=== PATIENT | male | born 1960 | race African-American/Black ===

== ENCOUNTER 2019-01-04 15:25 | Inpatient (IN) | payer OTHER ==
[2019-01-04 17:58] VITALS: BMI 27.3
--- NOTE | 2019-01-04 20:19 | HP ---
COWS - Scale Resting Pulse: 1= [place] 81-100 Sweatin= Chills/Flushing Restless Observation: 0= Sits Still Pupil Size: 0= Normal to Room Light Bone or Joint Aches: 1= Mild Discomfort Runny Nose/ Eye Tearin= Runny Nose/Eyes GI Upset > 30mins: 0= None Tremor Observation: 0= None Yawning Observation: 0= None Anxiety or Irritability: 1=Feels Anxious/Irritable Goose Flesh Skin: 0=Smooth Skin COWS Score: 6 CIWA Score - Admission Criteria [facility]ASAS Guidelines: Admission for Medically Managed Detox: Requires at least one of the followin. CIWA greater than 12 2. Seizures within the past 24 hours 3. Delirium tremens within the past 24 hours 4. Hallucinations within the past 24 hours 5. Acute intervention needed for co occurring medical disorder 6. Acute intervention needed for co occurring psychiatric disorder 7. Severe withdrawal that cannot be handled at a lower level of care (continued vomiting, continued diarrhea, abnormal vital signs) requiring intravenous medication and/or fluids 8. Admission ROS [facility] Chief Complaint: C/O WORSENING WITHDRAWAL SX'S. SEEKING DETOX Allergies/Adverse Reactions: Allergies Allergy/AdvReac Type Severity Reaction Status Date / Time No Known Allergies Allergy Verified 01/04/19 20:15 History of Present Illness: 58 Y.O MALE WITH HX/O OPIOID DEPENDENCE HERE FOR DETOX. CLIENT WAS REFERRED BY HIS OUTPATIENT PROGRAM [facility]. THIS IS HIS FIRST INPATIENT TXMENT HERE. LAST DETOX "MANY YEARS AGO". PRESENTS WITH C/O WORSENING WITHDRAWAL SX'S. CIWA 6. REPORTS LONGEST CLEAN TIME 5 YEARS WHILE INCARCERATED. PMHX- HLD, HTN, BORDERLINE DM. DENIES MENTAL HEALTH HX. DENIES PAST PRESENT SI/HI/ AVH, SEIZURE D/O. Exam Limitations: No Limitations - Ebola screening Have you traveled outside of the country in the last 21 days: No Have you had contact with anyone from an Ebola affected area: No Have you been sick,other than usual withdrawal symptoms: No - Review of Systems Constitutional: Chills, Loss of Appetite, Malaise, Night Sweats, Changes in sleep EENT: reports: Dental Problems (DENTURES BOTH) Respiratory: reports: Other (HX/O TB-TX'ED) Cardiac: reports: No Symptoms Reported GI: reports: Poor Appetite : reports: No Symptoms Reported Musculoskeletal: reports: No Symptoms Reported Integumentary: reports: No Symptoms Reported Neuro: reports: No Symptoms reported Endocrine: reports: Other (PRE DM) Hematology: reports: No Symptoms Reported Psychiatric: reports: Orientated x3 Other Systems: Reviewed and Negative Patient History - Patient Medical History Hx Anemia: No Hx Asthma: No Hx Chronic Obstructive Pulmonary Disease (COPD): No Hx Cancer: No Hx Cardiac Disorders: No Hx Congestive Heart Failure: No Hx Hypertension: Yes Hx Hypercholesterolemia: Yes Hx Pacemaker: No HX Cerebrovascular Accident: No Hx Seizures: No Hx Dementia: No Hx Diabetes: Yes (BORDELINE) Hx Gastrointestinal Disorders: No Hx Liver Disease: No Hx Genitourinary Disorders: No Hx Sexually Transmitted Disorders: No Hx Renal Disease (ESRD): No Hx Thyroid Disease: No Hx Human Immunodeficiency Virus (HIV): No Hx Hepatitis C: No Hx Depression: No Hx Suicide Attempt: No Hx Bipolar Disorder: No Hx Schizophrenia: No Other Medical History: DENIES - Patient Surgical History Past Surgical History: Yes Hx Appendectomy: Yes Anesthesia Reaction: No - PPD History Previous Implant?: Yes Documented Results: Positive w/o proof Implanted On Prior [facility] Admission?: No PPD to be Administered?: No - Smoking Cessation Smoking history: Never smoked Have you smoked in the past 12 months: Yes Aproximately how many cigarettes per day: 10 Cigars Per Day: 0 Hx Chewing Tobacco Use: No Initiated information on smoking cessation: Yes 'Breaking Loose' booklet given: 01/04/19 - Substance & Tx. History Hx Alcohol Use: No Hx Substance Use: Yes Substance Use Type: Heroin Hx Substance Use Treatment: No ([facility]) - Substances Abused [facility] Route: Inhalation Frequency: Daily Amount used: 10 BAGS Age of first use: 19 Date of Last Use: 01/04/19 (EARLY IN THE MORNING) Family Disease History - Family Disease History Family Disease History: Diabetes: Father (), Heart Disease: Father, Other: Father, Sister (ECZEMA) Admission Physical Exam [facility] - Vital Signs Vital Signs: Vital Signs - 24 hr 01/04/19 17:56 Temperature 98.1 F Pulse Rate 90 Respiratory 18 Rate Blood Pressure 147/103 H - Physical General Appearance: Yes: Appropriately Dressed, Anxious HEENTM: Yes: EOMI, Normocephalic, Normal Voice, MAGY, Pharynx Normal, Other ( DENTURES) Respiratory: Yes: Chest Non-Tender, Lungs Clear, Normal Breath Sounds, No Respiratory Distress, No Accessory Muscle Use Neck: Yes: No masses,lesions,Nodules, Supple, Trachea in good position Breast: Yes: Breast Exam Deferred Cardiology: Yes: Regular Rhythm, Regular Rate, S1, S2 Abdominal: Yes: Normal Bowel Sounds, Non Tender, Soft Genitourinary: Yes: Within Normal Limits Back: Yes: Normal Inspection Musculoskeletal: Yes: full range of Motion, Gait Steady Extremities: Yes: Normal Capillary Refill, Normal Range of Motion, Non-Tender Neurological: Yes: milling planer operator II-XII NML intact, Fully Oriented, Alert, Motor Strength 5/5 Integumentary: Yes: Dry, Warm, Rash (ECZEMA TO OTH ELBOWS) Lymphatic: Yes: Within Normal Limits - Diagnostic (1) Opioid dependence with withdrawal Current Visit: Yes Status: Acute (2) HTN (hypertension) Current Visit: Yes Status: Chronic Qualifiers: Hypertension type: essential hypertension Qualified Code(s): I10 - Essential (primary) hypertension (3) Borderline type 2 diabetes mellitus Current Visit: Yes Status: Chronic (4) HLD (hyperlipidemia) Current Visit: Yes Status: Chronic Qualifiers: Hyperlipidemia type: unspecified Qualified Code(s): E78.5 - Hyperlipidemia , unspecified (5) Nicotine dependence Current Visit: Yes Status: Chronic Qualifiers: Nicotine product type: cigarettes Substance use status: uncomplicated Qualified Code(s): F17.210 - Nicotine dependence, cigarettes, uncomplicated (6) History of TB (tuberculosis) Current Visit: Yes Status: Chronic Cleared for Admission [facility] - Detox or Rehab [facility] Level of Care: Medically Managed Detox Regimen/Protocol: Methadone Claeared for Rehab Admission: No [facility] Breath Alcohol Content Breath Alcohol Content: 0 Urine Drug Screen - Results Drug Screen Negative: No Urine Drug Screen Results: FEN-Fentanyl Inpatient Rehab Admission - Rehab Decision to Admit Inpatient rehab admission?: No
[2019-01-04] MEDS ORDERED: MAGNESIUM CITRATE 300 ML BOTTLE PO PRN (20:23)
[2019-01-04] MEDS ORDERED: NICOTINE POLACRILEX 2 MG GUM BC PRN (20:23)
[2019-01-04] MEDS ORDERED: ACETAMINOPHEN 325 MG TABLET (FP) PO PRN (20:23)
[2019-01-04] MEDS ORDERED: MAGNESIUM HYDROX 2400MG/30ML ORAL SUSPENSION 30 ML CUP PO PRN (20:23)
[2019-01-04] MEDS ORDERED: LOPERAMIDE HCL 2 MG CAPSULE PO PRN (20:23)
[2019-01-04] MEDS ORDERED: guaiFENesin/D-METHORPHAN HB 10 ML UNIT-DOSE CUPS PO PRN (20:23)
[2019-01-04] MEDS ORDERED: MENTHOL/PHENOL 1 EACH UD MM PRN (20:23)
[2019-01-04] MEDS ORDERED: MAG HYDROX/AL HYDROX/SIMETH 30 ML UNIT-DOSE CUP PO PRN (20:23)
[2019-01-04] MEDS: THIAMINE HCL 100 MG TABLET (FP) PO SCH (23:50)
[2019-01-05] MEDS ORDERED: METHADONE HCL 10 MG TABLET (FOR DETOX USE ONLY) PO ONE ×3 (00:11→23:00)
[2019-01-05] MEDS: IBUPROFEN 400 MG TABLET (FP) PO PRN ×2 (01:05→19:05)
[2019-01-05] MEDS: diazePAM 5 MG TABLET PO PRN ×4 (01:05→23:10)
[2019-01-05] MEDS: PRENATAL VITAMINS W/ FOLIC ACID TABLET (FP) PO SCH (10:25)
[2019-01-05] MEDS: NICOTINE 21 MG/24 HOURS TOPICAL PATCH TD SCH (10:29)
[2019-01-05 10:49] LABS: HEMATOCRIT 37.9 % (35.4-49); HEMOGLOBIN 12.7 GM/dL (11.7-16.9); MCH 26.9 pg (25.7-33.7); MCHC 33.4 g/dl (32.0-35.9); MEAN CELL VOLUME 80.6 fl (80-96); MEAN PLT VOLUME 8.6 fl (7.5-11.1); PLATELET COUNT 192 K/MM3 (134-434); RBC 4.71 M/mm3 (4.00-5.60); RDW 16.3 % (11.9-15.9); WHITE BLOOD COUNT 5.8 K/mm3 (4.0-10.0)
[2019-01-05 11:02] LABS: ALBUMIN 3.6 g/dl (3.4-5.0); ALK PHOS 81 U/L (45-117); ANION GAP 5 MMOL/L (8-16); BILIRUBIN,TOTAL 0.5 mg/dL (0.2-1); BLOOD UREA NITROGEN 19 mg/dL (7-18); CALCIUM 9.1 mg/dL (8.5-10.1); CHLORIDE 106 mmol/L (98-107); CO2 31 mmol/L (21-32); GLUCOSE,RANDOM 88 mg/dL (74-106); POTASSIUM 4.2 mmol/L (3.5-5.1); SGOT/AST 12 U/L (15-37); SGPT/ALT 19 U/L (13-61); SODIUM 142 mmol/L (136-145); TOT PROT 6.8 g/dl (6.4-8.2)
--- NOTE | 2019-01-05 11:22 | PN ---
[facility] COWS - Scale Resting Pulse: 1= [place] 81-100 Sweatin= No chills or Flushing Restless Observation: 0= Sits Still Pupil Size: 0= Normal to Room Light Bone or Joint Aches: 0= None Runny Nose/ Eye Tearin= None GI Upset > 30mins: 0= None Tremor Observation of Outstretched Hands: 0= None Yawning Observation: 0= None Anxiety or Irritability: 0= None Goose Flesh Skin: 0=Smooth Skin COWS Score: 1 [facility] Progress Note (SOAP) Subjective: pt states doing well with detox protocol. States has DM but is well controlled. O URINE DRUG SCREEN RESULTS Drug Screen Negative No Drug Screen Negative No Urine Drug Screen Results FEN-Fentanyl Urine Drug Screen Results FEN-Fentanyl Vital Signs - 24 hr 01/04/19 01/05/19 01/05/19 17:56 00:10 03:30 Temperature 98.1 F 97.9 F Pulse Rate 90 74 Respiratory 18 18 18 Rate Blood Pressure 147/103 H 156/108 H 01/05/19 01/05/19 06:06 09:06 Temperature 98.6 F 98.1 F Pulse Rate 67 73 Respiratory 18 18 Rate Blood Pressure 160/93 146/96 Laboratory Tests 01/04/19 01/05/19 01/05/19 23:01 08:00 08:00 WBC 5.8 RBC 4.71 Hgb 12.7 Hct 37.9 MCV 80.6 MCH 26.9 MCHC 33.4 RDW 16.3 H Plt Count 192 MPV 8.6 Sodium 142 Potassium 4.2 Chloride 106 Carbon Dioxide 31 Anion Gap 5 L BUN 19 H Creatinine 1.0 Creat Clearance w eGFR > 60 POC Glucometer 94 Random Glucose 88 Calcium 9.1 Total Bilirubin 0.5 AST 12 L ALT 19 Alkaline Phosphatase 81 Total Protein 6.8 Albumin 3.6 a/p: continue heroin detox protocol- pt doing well will add BID f/s monitoring for DM
[2019-01-05] MEDS: metFORMIN HCL 500 MG TABLET (FP) PO SCH (19:05)
[2019-01-05] MEDS ORDERED: LISINOPRIL 20 MG TABLET (FP) PO ONE (19:43)
[2019-01-05] MEDS: ATORVASTATIN CA 40 MG TABLET (FP) PO SCH (22:13)
[2019-01-05] MEDS: THIAMINE HCL 100 MG TABLET (FP) PO SCH (22:14)
--- NOTE | 2019-01-06 02:37 | EKG ---
Test Reason : Blood Pressure : / mmHG Vent. Rate : 074 BPM Atrial Rate : 074 BPM P-R Int : 000 ms QRS Dur : 160 ms QT Int : 378 ms P-R-T Axes : 063 070 047 degrees QTc Int : 419 ms NORMAL SINUS RHYTHM NON-SPECIFIC INTRA-VENTRICULAR CONDUCTION BLOCK ABNORMAL ECG NO PREVIOUS ECGS AVAILABLE Confirmed by DOLORES BELLAMY MD ([id number]) on 01/06/2019 2:37:02 AM Referred By: Confirmed By:DOLORES BELLAMY MD
[2019-01-06] MEDS: metFORMIN HCL 500 MG TABLET (FP) PO SCH ×2 (07:59→17:29)
[2019-01-06] MEDS ORDERED: METHADONE HCL 10 MG TABLET (FOR DETOX USE ONLY) PO ONE (10:00)
[2019-01-06] MEDS ORDERED: LISINOPRIL 10 MG TABLET (FP) PO SCH (10:00)
[2019-01-06] MEDS: ASPIRIN 81 MG CHEWABLE TABLETS PO SCH (10:26)
[2019-01-06] MEDS: PRENATAL VITAMINS W/ FOLIC ACID TABLET (FP) PO SCH (10:26)
[2019-01-06] MEDS: diazePAM 5 MG TABLET PO PRN (10:27)
[2019-01-06] MEDS: NICOTINE 21 MG/24 HOURS TOPICAL PATCH TD SCH (10:27)
[2019-01-06] MEDS: P-EPHED 60MG/TRIPROLIDI 2.5MG TABLET PO PRN (10:32)
--- NOTE | 2019-01-06 14:14 | PN ---
[facility] COWS - Scale Resting Pulse: 0= [place] 80 or Below Sweatin= Chills/Flushing Restless Observation: 1= Difficult to Sit Still Pupil Size: 0= Normal to Room Light Bone or Joint Aches: 2= Severe Diffuse Aches Runny Nose/ Eye Tearin= None GI Upset > 30mins: 0= None Tremor Observation of Outstretched Hands: 0= None Yawning Observation: 1= 1-2x During Session Anxiety or Irritability: 2=Irritable/Anxious Goose Flesh Skin: 3=Piloerection COWS Score: 10 [facility] Progress Note (SOAP) Subjective: Interrupted Sleep, H/A, Body Aches. Objective: PATIENT A & O X 3, OBSERVED AMBULATING ON UNIT. IN NO ACUTE DISTRESS. PATIENT DENIES CHEST PAIN. 01/06/19 14:15 Vital Signs Temperature 98.4 F 01/06/19 09:14 Pulse Rate 79 01/06/19 09:14 Respiratory Rate 18 01/06/19 09:14 Blood Pressure 158/96 01/06/19 09:14 O2 Sat by Pulse Oximetry (%) Laboratory Tests 01/04/19 01/05/19 01/05/19 23:01 08:00 08:00 WBC 5.8 RBC 4.71 Hgb 12.7 Hct 37.9 MCV 80.6 MCH 26.9 MCHC 33.4 RDW 16.3 H Plt Count 192 MPV 8.6 Sodium 142 Potassium 4.2 Chloride 106 Carbon Dioxide 31 Anion Gap 5 L BUN 19 H Creatinine 1.0 Creat Clearance w eGFR > 60 POC Glucometer 94 Random Glucose 88 Calcium 9.1 Total Bilirubin 0.5 AST 12 L ALT 19 Alkaline Phosphatase 81 Total Protein 6.8 Albumin 3.6 RPR Titer 01/05/19 01/06/19 08:00 06:17 WBC RBC Hgb Hct MCV MCH MCHC RDW Plt Count MPV Sodium Potassium Chloride Carbon Dioxide Anion Gap BUN Creatinine Creat Clearance w eGFR POC Glucometer 119 Random Glucose Calcium Total Bilirubin AST ALT Alkaline Phosphatase Total Protein Albumin RPR Titer Nonreactive LABS NOTED. UA RESULTS PENDING. 01/06/19 14:16 Assessment: 01/06/19 14:16 WITHDRAWAL SYMPTOMS. HYPERTENSION. 01/06/19 14:18 Plan: CONTINUE DETOX. INCREASE DAILY DOSE OF LISINOPRIL TO 20 MG PO DAILY FOR ELEVATED BP DESPITE TREATMENT.
[2019-01-06] MEDS ORDERED: LISINOPRIL 10 MG TABLET (FP) PO ONE (15:15)
[2019-01-06 17:01] LABS: URINE APPEARANCE CLOUDY; URINE BILIRUBIN NEGATIVE (<2.0 mg/dL); URINE COLOR YELLOW; URINE GLUCOSE (UA) NEGATIVE (NEGATIVE); URINE KETONE NEGATIVE (NEGATIVE); URINE LEUK ESTERASE NEGATIVE (NEGATIVE); URINE NITRITE NEGATIVE (NEGATIVE); URINE PROTEIN NEGATIVE (NEGATIVE); URINE UROBILINOGEN NEGATIVE mg/dL (0.2-1.0)
[2019-01-06] MEDS: THIAMINE HCL 100 MG TABLET (FP) PO SCH (22:19)
[2019-01-06] MEDS: ATORVASTATIN CA 40 MG TABLET (FP) PO SCH (22:19)
[2019-01-06] MEDS: MELATONIN 5 MG TABLETS PO PRN (22:20)
[2019-01-07] MEDS: metFORMIN HCL 500 MG TABLET (FP) PO SCH ×2 (06:15→17:21)
[2019-01-07] MEDS ORDERED: METHADONE HCL 5 MG TABLET (FOR DETOX USE ONLY) PO ONE (10:00)
[2019-01-07] MEDS: PRENATAL VITAMINS W/ FOLIC ACID TABLET (FP) PO SCH (10:14)
[2019-01-07] MEDS: ASPIRIN 81 MG CHEWABLE TABLETS PO SCH (10:14)
[2019-01-07] MEDS: LISINOPRIL 20 MG TABLET (FP) PO SCH (10:14)
[2019-01-07] MEDS: NICOTINE 21 MG/24 HOURS TOPICAL PATCH TD SCH (11:05)
[2019-01-07] MEDS: P-EPHED 60MG/TRIPROLIDI 2.5MG TABLET PO PRN (11:09)
--- NOTE | 2019-01-07 12:12 | PN ---
[facility] Progress Note (SOAP) Subjective: sweats shakes agitation nasal drip itchy feet i want a lesser dose of methadone so I can leave on thursday Objective: 01/07/19 12:10 Vital Signs Temperature 98.4 F 01/07/19 08:47 Pulse Rate 84 01/07/19 08:47 Respiratory Rate 18 01/07/19 08:47 Blood Pressure 139/97 01/07/19 08:47 O2 Sat by Pulse Oximetry (%) Laboratory Tests 01/04/19 01/05/19 01/05/19 23:01 08:00 08:00 WBC 5.8 RBC 4.71 Hgb 12.7 Hct 37.9 MCV 80.6 MCH 26.9 MCHC 33.4 RDW 16.3 H Plt Count 192 MPV 8.6 Sodium 142 Potassium 4.2 Chloride 106 Carbon Dioxide 31 Anion Gap 5 L BUN 19 H Creatinine 1.0 Creat Clearance w eGFR > 60 POC Glucometer 94 Random Glucose 88 Calcium 9.1 Total Bilirubin 0.5 AST 12 L ALT 19 Alkaline Phosphatase 81 Total Protein 6.8 Albumin 3.6 Urine Color Urine Appearance Urine pH Ur Specific [place] Urine Protein Urine Glucose (UA) Urine Ketones Urine Blood Urine Nitrite Urine Bilirubin Urine Urobilinogen Ur Leukocyte Esterase RPR Titer 01/05/19 01/06/19 01/06/19 08:00 06:17 11:15 WBC RBC Hgb Hct MCV MCH MCHC RDW Plt Count MPV Sodium Potassium Chloride Carbon Dioxide Anion Gap BUN Creatinine Creat Clearance w eGFR POC Glucometer 119 Random Glucose Calcium Total Bilirubin AST ALT Alkaline Phosphatase Total Protein Albumin Urine Color Yellow Urine Appearance Cloudy Urine pH 7.0 Ur Specific [place] 1.015 Urine Protein Negative Urine Glucose (UA) Negative Urine Ketones Negative Urine Blood Negative Urine Nitrite Negative Urine Bilirubin Negative Urine Urobilinogen Negative Ur Leukocyte Esterase Negative RPR Titer Nonreactive 01/06/19 01/07/19 16:24 05:20 WBC RBC Hgb Hct MCV MCH MCHC RDW Plt Count MPV Sodium Potassium Chloride Carbon Dioxide Anion Gap BUN Creatinine Creat Clearance w eGFR POC Glucometer 160 86 Random Glucose Calcium Total Bilirubin AST ALT Alkaline Phosphatase Total Protein Albumin Urine Color Urine Appearance Urine pH Ur Specific [place] Urine Protein Urine Glucose (UA) Urine Ketones Urine Blood Urine Nitrite Urine Bilirubin Urine Urobilinogen Ur Leukocyte Esterase RPR Titer aaox3 ambulating no acute distress Assessment: 01/07/19 12:11 withdrawal sx Plan: continue detox with lesser dose of methadone as pt requested increase fluids actifed tinactin cream
[2019-01-07] MEDS: TOLNAFTATE 1% CREAM 15 GM TUBE TP SCH ×2 (15:01→22:27)
[2019-01-07] MEDS: diazePAM 5 MG TABLET PO PRN (22:26)
[2019-01-07] MEDS: THIAMINE HCL 100 MG TABLET (FP) PO SCH (22:26)
[2019-01-07] MEDS: ATORVASTATIN CA 40 MG TABLET (FP) PO SCH (22:26)
[2019-01-08] MEDS: metFORMIN HCL 500 MG TABLET (FP) PO SCH ×2 (07:46→17:48)
[2019-01-08] MEDS ORDERED: METHADONE HCL 5 MG TABLET (FOR DETOX USE ONLY) PO ONE (10:00)
[2019-01-08] MEDS: PRENATAL VITAMINS W/ FOLIC ACID TABLET (FP) PO SCH (10:22)
[2019-01-08] MEDS: LISINOPRIL 20 MG TABLET (FP) PO SCH (10:22)
[2019-01-08] MEDS: ASPIRIN 81 MG CHEWABLE TABLETS PO SCH (10:22)
[2019-01-08] MEDS: NICOTINE 21 MG/24 HOURS TOPICAL PATCH TD SCH (10:23)
[2019-01-08] MEDS: TOLNAFTATE 1% CREAM 15 GM TUBE TP SCH ×2 (10:30→22:35)
--- NOTE | 2019-01-08 11:55 | PN ---
S Progress Note (SOAP) Subjective: PT REPORTS DECREASED WITHDRAWAL SX-ANXIETY, TREMORS, IRRITABILITY. PT STATES HE IS LEAVING IN THE MORNING AND HAS OWN MEDS AND PCP AT [facility] IN [place], [place]. Objective: 01/08/19 11:52 Vital Signs 01/08/19 01/08/19 06:00 09:56 Temperature 97.3 F L 98.6 F Pulse Rate 72 81 Respiratory 18 18 Rate Blood Pressure 152/86 137/84 Laboratory Tests 01/04/19 01/05/19 01/05/19 23:01 08:00 08:00 WBC 5.8 RBC 4.71 Hgb 12.7 Hct 37.9 MCV 80.6 MCH 26.9 MCHC 33.4 RDW 16.3 H Plt Count 192 MPV 8.6 Sodium 142 Potassium 4.2 Chloride 106 Carbon Dioxide 31 Anion Gap 5 L BUN 19 H Creatinine 1.0 Creat Clearance w eGFR > 60 POC Glucometer 94 Random Glucose 88 Calcium 9.1 Total Bilirubin 0.5 AST 12 L ALT 19 Alkaline Phosphatase 81 Total Protein 6.8 Albumin 3.6 Urine Color Urine Appearance Urine pH Ur Specific [place] Urine Protein Urine Glucose (UA) Urine Ketones Urine Blood Urine Nitrite Urine Bilirubin Urine Urobilinogen Ur Leukocyte Esterase RPR Titer 01/05/19 01/06/19 01/06/19 08:00 06:17 11:15 WBC RBC Hgb Hct MCV MCH MCHC RDW Plt Count MPV Sodium Potassium Chloride Carbon Dioxide Anion Gap BUN Creatinine Creat Clearance w eGFR POC Glucometer 119 Random Glucose Calcium Total Bilirubin AST ALT Alkaline Phosphatase Total Protein Albumin Urine Color Yellow Urine Appearance Cloudy Urine pH 7.0 Ur Specific [place] 1.015 Urine Protein Negative Urine Glucose (UA) Negative Urine Ketones Negative Urine Blood Negative Urine Nitrite Negative Urine Bilirubin Negative Urine Urobilinogen Negative Ur Leukocyte Esterase Negative RPR Titer Nonreactive 01/06/19 01/07/19 01/07/19 16:24 05:20 16:17 WBC RBC Hgb Hct MCV MCH MCHC RDW Plt Count MPV Sodium Potassium Chloride Carbon Dioxide Anion Gap BUN Creatinine Creat Clearance w eGFR POC Glucometer 160 86 128 Random Glucose Calcium Total Bilirubin AST ALT Alkaline Phosphatase Total Protein Albumin Urine Color Urine Appearance Urine pH Ur Specific [place] Urine Protein Urine Glucose (UA) Urine Ketones Urine Blood Urine Nitrite Urine Bilirubin Urine Urobilinogen Ur Leukocyte Esterase RPR Titer 01/08/19 05:45 WBC RBC Hgb Hct MCV MCH MCHC RDW Plt Count MPV Sodium Potassium Chloride Carbon Dioxide Anion Gap BUN Creatinine Creat Clearance w eGFR POC Glucometer 102 Random Glucose Calcium Total Bilirubin AST ALT Alkaline Phosphatase Total Protein Albumin Urine Color Urine Appearance Urine pH Ur Specific [place] Urine Protein Urine Glucose (UA) Urine Ketones Urine Blood Urine Nitrite Urine Bilirubin Urine Urobilinogen Ur Leukocyte Esterase RPR Titer Assessment: 01/08/19 11:52 DECREASED WITHDRAWAL SX Plan: CONTINUE DETOX WILL FOLLOW UP WITH PCP UPON DISCHARGE.
[2019-01-08] MEDS: THIAMINE HCL 100 MG TABLET (FP) PO SCH (22:35)
[2019-01-08] MEDS: ATORVASTATIN CA 40 MG TABLET (FP) PO SCH (22:35)
[2019-01-08] MEDS: MELATONIN 5 MG TABLETS PO PRN (22:35)
[2019-01-09] MEDS ORDERED: METHADONE HCL 10 MG TABLET (FOR DETOX USE ONLY) PO ONE ×2 (06:00→10:00)
[2019-01-09 06:16] VITALS: BP 152/93; PULSE 70; TEMP 97.3
[2019-01-09] MEDS: metFORMIN HCL 500 MG TABLET (FP) PO SCH (06:29)
--- NOTE | 2019-01-09 12:05 | DS ---
[facility] Detox Discharge Summary Admission Date: 01/04/19 Discharge Date: 01/09/19 - History Present History: Opioid Dependence Additional Comments: Patient completed detox successfully. Patient is A/A/Ox3, in nad, ambulatory. Instructed to follow up with his PCP within 1-2 weeks. Pertinent Past History: Prediabetes PPD Positive HTN HLD Opioid dependence Nicotine dependence - Physical Exam Results Vital Signs: Vital Signs Temperature 97.3 F L 01/09/19 06:00 Pulse Rate 70 01/09/19 06:00 Respiratory Rate 18 01/09/19 06:00 Blood Pressure 152/93 01/09/19 06:00 O2 Sat by Pulse Oximetry (%) Pertinent Admission Physical Exam Findings: Withdrawal symptoms Laboratory Tests 01/04/19 01/05/19 01/05/19 23:01 08:00 08:00 WBC 5.8 RBC 4.71 Hgb 12.7 Hct 37.9 MCV 80.6 MCH 26.9 MCHC 33.4 RDW 16.3 H Plt Count 192 MPV 8.6 Sodium 142 Potassium 4.2 Chloride 106 Carbon Dioxide 31 Anion Gap 5 L BUN 19 H Creatinine 1.0 Creat Clearance w eGFR > 60 POC Glucometer 94 Random Glucose 88 Calcium 9.1 Total Bilirubin 0.5 AST 12 L ALT 19 Alkaline Phosphatase 81 Total Protein 6.8 Albumin 3.6 Urine Color Urine Appearance Urine pH Ur Specific [place] Urine Protein Urine Glucose (UA) Urine Ketones Urine Blood Urine Nitrite Urine Bilirubin Urine Urobilinogen Ur Leukocyte Esterase RPR Titer 01/05/19 01/06/19 01/06/19 08:00 06:17 11:15 WBC RBC Hgb Hct MCV MCH MCHC RDW Plt Count MPV Sodium Potassium Chloride Carbon Dioxide Anion Gap BUN Creatinine Creat Clearance w eGFR POC Glucometer 119 Random Glucose Calcium Total Bilirubin AST ALT Alkaline Phosphatase Total Protein Albumin Urine Color Yellow Urine Appearance Cloudy Urine pH 7.0 Ur Specific [place] 1.015 Urine Protein Negative Urine Glucose (UA) Negative Urine Ketones Negative Urine Blood Negative Urine Nitrite Negative Urine Bilirubin Negative Urine Urobilinogen Negative Ur Leukocyte Esterase Negative RPR Titer Nonreactive 01/06/19 01/07/19 01/07/19 16:24 05:20 16:17 WBC RBC Hgb Hct MCV MCH MCHC RDW Plt Count MPV Sodium Potassium Chloride Carbon Dioxide Anion Gap BUN Creatinine Creat Clearance w eGFR POC Glucometer 160 86 128 Random Glucose Calcium Total Bilirubin AST ALT Alkaline Phosphatase Total Protein Albumin Urine Color Urine Appearance Urine pH Ur Specific [place] Urine Protein Urine Glucose (UA) Urine Ketones Urine Blood Urine Nitrite Urine Bilirubin Urine Urobilinogen Ur Leukocyte Esterase RPR Titer 01/08/19 01/08/19 01/09/19 05:45 16:30 05:40 WBC RBC Hgb Hct MCV MCH MCHC RDW Plt Count MPV Sodium Potassium Chloride Carbon Dioxide Anion Gap BUN Creatinine Creat Clearance w eGFR POC Glucometer 102 79 93 Random Glucose Calcium Total Bilirubin AST ALT Alkaline Phosphatase Total Protein Albumin Urine Color Urine Appearance Urine pH Ur Specific [place] Urine Protein Urine Glucose (UA) Urine Ketones Urine Blood Urine Nitrite Urine Bilirubin Urine Urobilinogen Ur Leukocyte Esterase RPR Titer Labs reviewed - Treatment Hospital Course: Detox Protocol Followed, Detoxed Safely, Responded well, Discharged Condition Good - Medication Discharge Medications: Ambulatory Orders Aspirin [ASA -] 81 mg PO DAILY 01/04/19 Atorvastatin Ca [Lipitor] 40 mg PO HS 01/04/19 Lisinopril [Prinivil -] 10 mg PO DAILY 01/04/19 Metformin HCl [Glucophage] 500 mg PO BID 01/04/19 NK [No Known Home Medication] 01/04/19 - Diagnosis (1) PPD positive Status: Chronic (2) Prediabetes Status: Chronic (3) Opioid dependence with withdrawal Status: Acute (4) HLD (hyperlipidemia) Status: Chronic Qualifiers: Hyperlipidemia type: unspecified Qualified Code(s): E78.5 - Hyperlipidemia , unspecified (5) HTN (hypertension) Status: Chronic Qualifiers: Hypertension type: essential hypertension Qualified Code(s): I10 - Essential (primary) hypertension (6) Nicotine dependence Status: Chronic Qualifiers: Nicotine product type: cigarettes Substance use status: uncomplicated Qualified Code(s): F17.210 - Nicotine dependence, cigarettes, uncomplicated - AMA Did Patient Leave Against Medical Advice: No (Follow up with PCP within 1-2 weeks)
[2019-01-10] MEDS ORDERED: METHADONE HCL 5 MG TABLET (FOR DETOX USE ONLY) PO ONE (06:00)
== END 2019-01-09 09:25 | disposition home or self-care (01) | DRG 773 ==
LOC: YASAS 15:25 → Y6N 21:27
PROVIDERS: ADMIT Surgery; ATTEND Surgery
PROC: HZ2ZZZZ Detoxification Services for Substance Abuse Treatment (ICD-10-PCS; principal; 2019-01-04)
DX: F11.23 Opioid dependence with withdrawal (principal); F17.210 Nicotine dependence, cigarettes, uncomplicated; I10 Essential (primary) hypertension; E78.5 Hyperlipidemia, unspecified; E11.9 Type 2 diabetes mellitus without complications; Z79.84 Long term (current) use of oral hypoglycemic drugs; R76.11 Nonspecific reaction to tuberculin skin test without active tuberculosis
CPT/HCPCS: 36415; 71046-TC-FY; 80053; 81003; 82962; 85027; 86593; 93005; 93010

== ENCOUNTER 2019-05-05 12:39 | Inpatient (IN) | payer OTHER ==
[2019-05-05 17:37] VITALS: BMI 25.3
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
[2019-05-05] MEDS ORDERED: ACETAMINOPHEN 325 MG TABLET (FP) PO PRN ×2 (21:30)
[2019-05-05] MEDS ORDERED: MAGNESIUM CITRATE 300 ML BOTTLE PO PRN (21:30)
[2019-05-05] MEDS ORDERED: MAGNESIUM HYDROX 2400MG/30ML ORAL SUSPENSION 30 ML CUP PO PRN (21:30)
[2019-05-05] MEDS ORDERED: BISMUTH SUBSALICYLATE 524 MG/30 ML UD PO PRN (21:30)
[2019-05-05] MEDS ORDERED: MENTHOL/PHENOL 1 EACH UD MM PRN (21:30)
[2019-05-05] MEDS ORDERED: MAG HYDROX/AL HYDROX/SIMETH 30 ML UNIT-DOSE CUP PO PRN (21:30)
[2019-05-05] MEDS ORDERED: METHOCARBAMOL 500 MG TABLET PO PRN (21:30)
[2019-05-05] MEDS ORDERED: IBUPROFEN 400 MG TABLET (FP) PO PRN ×2 (21:30→21:35)
[2019-05-05] MEDS ORDERED: NICOTINE POLACRILEX 2 MG GUM BUC PRN (21:30)
[2019-05-05] MEDS ORDERED: cloNIDine HCL 0.1 MG TABLET PO PRN (21:32)
[2019-05-05] MEDS ORDERED: ALBUTEROL SO4 0.083% IH SOL 2.5 MG/3 ML VIAL.NEB. NEB PRN (21:47)
[2019-05-05] MEDS ORDERED: metFORMIN HCL 500 MG TABLET (FP) PO SCH (22:00)
[2019-05-05] MEDS: BACITRACIN 15 GM TUBE TOPICAL OINTMENT TP SCH (22:50)
[2019-05-05] MEDS: THIAMINE HCL 100 MG TABLET (FP) PO SCH (22:50)
[2019-05-05] MEDS: ATORVASTATIN CA 40 MG TABLET (FP) PO SCH (22:50)
[2019-05-05] MEDS: MELATONIN 5 MG TABLETS PO PRN (22:51)
[2019-05-05] MEDS ORDERED: METHADONE HCL 10 MG TABLET (FOR DETOX USE ONLY) PO ONE (23:00)
[2019-05-06 05:45] LABS: URINE APPEARANCE CLEAR; URINE BILIRUBIN NEGATIVE (NEGATIVE); URINE COLOR YELLOW; URINE GLUCOSE (UA) NEGATIVE (NEGATIVE); URINE KETONE TRACE (NEGATIVE); URINE LEUK ESTERASE NEGATIVE (NEGATIVE); URINE NITRITE NEGATIVE (NEGATIVE); URINE PROTEIN NEGATIVE (NEGATIVE)
[2019-05-06] MEDS: metFORMIN HCL 500 MG TABLET (FP) PO SCH ×2 (06:31→17:41)
[2019-05-06] MEDS ORDERED: METHADONE HCL 10 MG TABLET (FOR DETOX USE ONLY) PO ONE (10:00)
[2019-05-06] MEDS ORDERED: LISINOPRIL 10 MG TABLET (FP) PO SCH (10:00)
[2019-05-06] MEDS: NICOTINE 14 MG/24 HOURS TOPICAL PATCH TD SCH (10:42)
[2019-05-06] MEDS: PRENATAL VITAMINS W/ FOLIC ACID TABLET (FP) PO SCH (10:42)
[2019-05-06] MEDS: ASPIRIN 81 MG CHEWABLE TABLETS PO SCH (10:42)
[2019-05-06 11:40] LABS: HEMATOCRIT 37.2 % (35.4-49); HEMOGLOBIN 12.1 GM/dL (11.7-16.9); MCH 27.1 pg (25.7-33.7); MCHC 32.5 g/dl (32.0-35.9); MEAN CELL VOLUME 83.5 fl (80-96); MEAN PLT VOLUME 8.6 fl (7.5-11.1); PLATELET COUNT 214 K/MM3 (134-434); RBC 4.46 M/mm3 (4.00-5.60); RDW 13.9 % (11.9-15.9); WHITE BLOOD COUNT 5.7 K/mm3 (4.0-10.0)
[2019-05-06] MEDS ORDERED: IBUPROFEN 600 MG TABLET (FP) PO PRN (11:43)
[2019-05-06 11:54] LABS: ALBUMIN 3.5 g/dl (3.4-5.0); BILIRUBIN,TOTAL 0.5 mg/dL (0.2-1); BLOOD UREA NITROGEN 15.2 mg/dL (7-18); CALCIUM 8.8 mg/dL (8.5-10.1); CREATININE 0.9 mg/dL (0.55-1.3); POTASSIUM 4.2 mmol/L (3.5-5.1); TOT PROT 6.2 g/dl (6.4-8.2)
--- NOTE | 2019-05-06 12:55 | PN ---
BHS COWS - Scale Resting Pulse: 0= [place] 80 or Below Sweatin= Chills/Flushing Restless Observation: 0= Sits Still Pupil Size: 0= Normal to Room Light Bone or Joint Aches: 2= Severe Diffuse Aches Runny Nose/ Eye Tearin= None GI Upset > 30mins: 2= Nausea/Diarrhea Tremor Observation of Outstretched Hands: 2= Slight Tremor Visible Yawning Observation: 1= 1-2x During Session Anxiety or Irritability: 2=Irritable/Anxious Goose Flesh Skin: 0=Smooth Skin COWS Score: 10 BHS Progress Note (SOAP) Subjective: Nausea, Tremors, Body Aches. Objective: PATIENT A & O X 3, OBSERVED AMBULATING ON UNIT UNASSISTED. IN NO ACUTE DISTRESS. 05/06/19 12:56 Vital Signs Temperature 97.8 F 05/06/19 09:35 Pulse Rate 67 05/06/19 09:35 Respiratory Rate 18 05/06/19 09:35 Blood Pressure 149/93 05/06/19 09:35 O2 Sat by Pulse Oximetry (%) Laboratory Tests 05/06/19 05/06/19 05/06/19 04:00 05:35 07:00 WBC 5.7 RBC 4.46 Hgb 12.1 Hct 37.2 MCV 83.5 MCH 27.1 MCHC 32.5 RDW 13.9 D Plt Count 214 MPV 8.6 Sodium Potassium Chloride Carbon Dioxide Anion Gap BUN Creatinine Est GFR (CKD-EPI)AfAm Est GFR (CKD-EPI)NonAf POC Glucometer 96 Random Glucose Calcium Total Bilirubin AST ALT Alkaline Phosphatase Total Protein Albumin Urine Color Yellow Urine Appearance Clear Urine pH 6.0 Ur Specific [place] 1.025 Urine Protein Negative Urine Glucose (UA) Negative Urine Ketones Trace H Urine Blood Negative Urine Nitrite Negative Urine Bilirubin Negative Urine Urobilinogen 1.0 Ur Leukocyte Esterase Negative 05/06/19 07:00 WBC RBC Hgb Hct MCV MCH MCHC RDW Plt Count MPV Sodium 143 Potassium 4.2 Chloride 109 H Carbon Dioxide 33 H Anion Gap 2 L BUN 15.2 Creatinine 0.9 Est GFR (CKD-EPI)AfAm 110.27 Est GFR (CKD-EPI)NonAf 95.14 POC Glucometer Random Glucose 79 Calcium 8.8 Total Bilirubin 0.5 AST 19 ALT 29 Alkaline Phosphatase 80 Total Protein 6.2 L Albumin 3.5 Urine Color Urine Appearance Urine pH Ur Specific [place] Urine Protein Urine Glucose (UA) Urine Ketones Urine Blood Urine Nitrite Urine Bilirubin Urine Urobilinogen Ur Leukocyte Esterase LABS NOTED. Assessment: 05/06/19 12:56 WITHDRAWAL SYMPTOMS. HYPERTENSION. 05/06/19 12:57 Plan: CONTINUE DETOX. CONTINUE TO MONITOR BLOOD PRESSURE.
--- NOTE | 2019-05-06 13:56 | PN ---
S Progress Note Note: Results of afternoon BP noted (150/93). Will increase Daily Dose of Lisinopril to 20 mg PO DAily and continue to monitor Blood Pressure for effect. Latasha Omalley [employer]ATION [employer]
[2019-05-06] MEDS ORDERED: LISINOPRIL 10 MG TABLET (FP) PO ONE (14:20)
[2019-05-06] MEDS: BACITRACIN 15 GM TUBE TOPICAL OINTMENT TP SCH ×2 (14:33→22:20)
[2019-05-06] MEDS: diazePAM 5 MG TABLET PO PRN (22:19)
[2019-05-06] MEDS: MELATONIN 5 MG TABLETS PO PRN (22:19)
[2019-05-06] MEDS: THIAMINE HCL 100 MG TABLET (FP) PO SCH (22:19)
[2019-05-06] MEDS: ATORVASTATIN CA 40 MG TABLET (FP) PO SCH (22:20)
[2019-05-07] MEDS: diazePAM 5 MG TABLET PO PRN ×2 (06:03→22:35)
[2019-05-07] MEDS: metFORMIN HCL 500 MG TABLET (FP) PO SCH ×2 (06:03→17:34)
[2019-05-07] MEDS ORDERED: METHADONE HCL 10 MG TABLET (FOR DETOX USE ONLY) PO ONE (10:00)
[2019-05-07] MEDS: LISINOPRIL 20 MG TABLET (FP) PO SCH (10:17)
[2019-05-07] MEDS: ASPIRIN 81 MG CHEWABLE TABLETS PO SCH (10:17)
[2019-05-07] MEDS: PRENATAL VITAMINS W/ FOLIC ACID TABLET (FP) PO SCH (10:17)
--- NOTE | 2019-05-07 10:17 | PN ---
BHS COWS - Scale Resting Pulse: 0= [place] 80 or Below Sweatin= Chills/Flushing Restless Observation: 1= Difficult to Sit Still Pupil Size: 0= Normal to Room Light Bone or Joint Aches: 2= Severe Diffuse Aches Runny Nose/ Eye Tearin= None GI Upset > 30mins: 0= None Tremor Observation of Outstretched Hands: 1= Tremor [place], Not Seen Yawning Observation: 1= 1-2x During Session Anxiety or Irritability: 2=Irritable/Anxious Goose Flesh Skin: 0=Smooth Skin COWS Score: 8 BHS Progress Note (SOAP) Subjective: c/o sweats, muscle aches, and irritability. Objective: 05/07/19 10:17 Vital Signs 05/07/19 05/07/19 05/07/19 03:30 06:29 09:47 Temperature 98.6 F 99.1 F Pulse Rate 71 69 Respiratory 18 18 18 Rate Blood Pressure 151/95 167/98 Lab Results WBC 5.7 K/mm3 (4.0-10.0) 05/06/19 07:00 RBC 4.46 M/mm3 (4.00-5.60) 05/06/19 07:00 Hgb 12.1 GM/dL (11.7-16.9) 05/06/19 07:00 Hct 37.2 % (35.4-49) 05/06/19 07:00 MCV 83.5 fl (80-96) 05/06/19 07:00 MCHC 32.5 g/dl (32.0-35.9) 05/06/19 07:00 RDW 13.9 % (11.9-15.9) D 05/06/19 07:00 Plt Count 214 K/MM3 (134-434) 05/06/19 07:00 Sodium 143 mmol/L (136-145) 05/06/19 07:00 Potassium 4.2 mmol/L (3.5-5.1) 05/06/19 07:00 Chloride 109 mmol/L (98-107) H 05/06/19 07:00 Carbon Dioxide 33 mmol/L (21-32) H 05/06/19 07:00 Anion Gap 2 MMOL/L (8-16) L 05/06/19 07:00 BUN 15.2 mg/dL (7-18) 05/06/19 07:00 Creatinine 0.9 mg/dL (0.55-1.3) 05/06/19 07:00 Random Glucose 79 mg/dL (74-106) 05/06/19 07:00 Calcium 8.8 mg/dL (8.5-10.1) 05/06/19 07:00 Labs pending. Assessment: 05/07/19 10:17 AOX3, in no acute distress. Full rom, ambulates in the unit. withdrawal signs Plan: continue detox.
[2019-05-07] MEDS: BACITRACIN 15 GM TUBE TOPICAL OINTMENT TP SCH ×2 (10:19→22:35)
[2019-05-07] MEDS: NICOTINE 14 MG/24 HOURS TOPICAL PATCH TD SCH (10:19)
[2019-05-07] MEDS: THIAMINE HCL 100 MG TABLET (FP) PO SCH (22:35)
[2019-05-07] MEDS: ATORVASTATIN CA 40 MG TABLET (FP) PO SCH (22:35)
[2019-05-08] MEDS: metFORMIN HCL 500 MG TABLET (FP) PO SCH ×2 (06:25→17:11)
[2019-05-08] MEDS ORDERED: METHADONE HCL 10 MG TABLET (FOR DETOX USE ONLY) PO ONE (10:00)
[2019-05-08] MEDS: BACITRACIN 15 GM TUBE TOPICAL OINTMENT TP SCH ×2 (10:07→22:15)
[2019-05-08] MEDS: ASPIRIN 81 MG CHEWABLE TABLETS PO SCH (10:07)
[2019-05-08] MEDS: LISINOPRIL 20 MG TABLET (FP) PO SCH (10:08)
[2019-05-08] MEDS: PRENATAL VITAMINS W/ FOLIC ACID TABLET (FP) PO SCH (10:08)
[2019-05-08] MEDS: NICOTINE 14 MG/24 HOURS TOPICAL PATCH TD SCH (10:08)
--- NOTE | 2019-05-08 13:40 | PN ---
BHS COWS - Scale Resting Pulse: 0= [place] 80 or Below Sweatin= Chills/Flushing Restless Observation: 1= Difficult to Sit Still Pupil Size: 2= Moderately Dilated Bone or Joint Aches: 1= Mild Discomfort Runny Nose/ Eye Tearin= Nasal Congestion GI Upset > 30mins: 1= Stomach Cramp Tremor Observation of Outstretched Hands: 0= None Yawning Observation: 0= None Anxiety or Irritability: 1=Feels Anxious/Irritable Goose Flesh Skin: 0=Smooth Skin COWS Score: 8 BHS Progress Note (SOAP) Subjective: ACHINESS, INSOMNIA, ANXIETY Objective: 05/08/19 13:33 Laboratory Tests 05/06/19 05/06/19 05/06/19 04:00 05:35 07:00 WBC 5.7 RBC 4.46 Hgb 12.1 Hct 37.2 MCV 83.5 MCH 27.1 MCHC 32.5 RDW 13.9 D Plt Count 214 MPV 8.6 Sodium Potassium Chloride Carbon Dioxide Anion Gap BUN Creatinine Est GFR (CKD-EPI)AfAm Est GFR (CKD-EPI)NonAf POC Glucometer 96 Random Glucose Calcium Total Bilirubin AST ALT Alkaline Phosphatase Total Protein Albumin Urine Color Yellow Urine Appearance Clear Urine pH 6.0 Ur Specific [place] 1.025 Urine Protein Negative Urine Glucose (UA) Negative Urine Ketones Trace H Urine Blood Negative Urine Nitrite Negative Urine Bilirubin Negative Urine Urobilinogen 1.0 Ur Leukocyte Esterase Negative 05/06/19 05/06/19 05/06/19 07:00 16:30 19:22 WBC RBC Hgb Hct MCV MCH MCHC RDW Plt Count MPV Sodium 143 Potassium 4.2 Chloride 109 H Carbon Dioxide 33 H Anion Gap 2 L BUN 15.2 Creatinine 0.9 Est GFR (CKD-EPI)AfAm 110.27 Est GFR (CKD-EPI)NonAf 95.14 POC Glucometer 62 77 Random Glucose 79 Calcium 8.8 Total Bilirubin 0.5 AST 19 ALT 29 Alkaline Phosphatase 80 Total Protein 6.2 L Albumin 3.5 Urine Color Urine Appearance Urine pH Ur Specific [place] Urine Protein Urine Glucose (UA) Urine Ketones Urine Blood Urine Nitrite Urine Bilirubin Urine Urobilinogen Ur Leukocyte Esterase 05/07/19 05/07/19 05/08/19 06:02 16:23 06:25 WBC RBC Hgb Hct MCV MCH MCHC RDW Plt Count MPV Sodium Potassium Chloride Carbon Dioxide Anion Gap BUN Creatinine Est GFR (CKD-EPI)AfAm Est GFR (CKD-EPI)NonAf POC Glucometer 103 86 101 Random Glucose Calcium Total Bilirubin AST ALT Alkaline Phosphatase Total Protein Albumin Urine Color Urine Appearance Urine pH Ur Specific [place] Urine Protein Urine Glucose (UA) Urine Ketones Urine Blood Urine Nitrite Urine Bilirubin Urine Urobilinogen Ur Leukocyte Esterase Vital Signs - 24 hr 05/07/19 05/07/19 05/07/19 13:50 17:51 22:17 Temperature 97.7 F 97.3 F L 98.6 F Pulse Rate 83 64 74 Respiratory 18 17 19 Rate Blood Pressure 151/90 146/96 143/86 05/08/19 05/08/19 05/08/19 00:30 03:30 06:30 Temperature 98.1 F Pulse Rate 66 Respiratory 18 18 18 Rate Blood Pressure 124/80 05/08/19 05/08/19 09:20 13:18 Temperature 98.9 F 97.9 F Pulse Rate 70 69 Respiratory 18 18 Rate Blood Pressure 143/95 143/94 Assessment: 05/08/19 13:33 OPIATE DEP Plan: CONT DETOX PROTOCOL
[2019-05-08] MEDS: THIAMINE HCL 100 MG TABLET (FP) PO SCH (22:15)
[2019-05-08] MEDS: ATORVASTATIN CA 40 MG TABLET (FP) PO SCH (22:15)
[2019-05-08] MEDS: MELATONIN 5 MG TABLETS PO PRN (22:15)
[2019-05-09] MEDS ORDERED: METHADONE HCL 5 MG TABLET (FOR DETOX USE ONLY) PO ONE (06:00)
[2019-05-09] MEDS: metFORMIN HCL 500 MG TABLET (FP) PO SCH (06:01)
[2019-05-09 06:14] VITALS: TEMP 97.6
[2019-05-09 09:17] VITALS: BP 148/100; PULSE 82
[2019-05-09] MEDS: LISINOPRIL 20 MG TABLET (FP) PO SCH (12:12)
[2019-05-09] MEDS: NICOTINE 14 MG/24 HOURS TOPICAL PATCH TD SCH (12:12)
[2019-05-09] MEDS: ASPIRIN 81 MG CHEWABLE TABLETS PO SCH (12:12)
[2019-05-09] MEDS: BACITRACIN 15 GM TUBE TOPICAL OINTMENT TP SCH (12:12)
[2019-05-09] MEDS: PRENATAL VITAMINS W/ FOLIC ACID TABLET (FP) PO SCH (12:12)
--- NOTE | 2019-05-09 22:18 | DS ---
[facility] Detox Discharge Summary Admission Date: 05/05/19 Discharge Date: 05/09/19 - History Present History: Opioid Dependence Additional Comments: PATIENT REFERRED TO [facility] ([place], [place]) FOR AFTERCARE. PATIENT DECLINED OFFER OF MEDICATION PRESCRIPTION FOR HOME MEDICATION AT TIME OF DISCHARGE FROM DETOX, NOTING THAT HE CURRENTLY HAS ADEQUATE SUPPLIES OF ALL PRESCRIBED HOME MEDICATIONS AT HOME. PATIENT WAS DISCHARGED FROM DETOX UNIT IN STABLE MEDICAL CONDITION. Pertinent Past History: HTN, Hyperlipidemia, Borderline DM, History Of Positive PPD, Nicotine Dependence , History Of Abrasions Of Bilateral Legs (Without Infection). - Physical Exam Results Vital Signs: Vital Signs Temperature 97.6 F 05/09/19 09:00 Pulse Rate 82 05/09/19 09:00 Respiratory Rate 18 05/09/19 09:00 Blood Pressure 148/100 05/09/19 09:00 O2 Sat by Pulse Oximetry (%) Pertinent Admission Physical Exam Findings: WITHDRAWAL SYMPTOMS. Laboratory Tests 05/06/19 05/06/19 05/06/19 04:00 05:35 07:00 WBC 5.7 RBC 4.46 Hgb 12.1 Hct 37.2 MCV 83.5 MCH 27.1 MCHC 32.5 RDW 13.9 D Plt Count 214 MPV 8.6 Sodium Potassium Chloride Carbon Dioxide Anion Gap BUN Creatinine Est GFR (CKD-EPI)AfAm Est GFR (CKD-EPI)NonAf POC Glucometer 96 Random Glucose Calcium Total Bilirubin AST ALT Alkaline Phosphatase Total Protein Albumin Urine Color Yellow Urine Appearance Clear Urine pH 6.0 Ur Specific [place] 1.025 Urine Protein Negative Urine Glucose (UA) Negative Urine Ketones Trace H Urine Blood Negative Urine Nitrite Negative Urine Bilirubin Negative Urine Urobilinogen 1.0 Ur Leukocyte Esterase Negative 05/06/19 05/06/19 05/06/19 07:00 16:30 19:22 WBC RBC Hgb Hct MCV MCH MCHC RDW Plt Count MPV Sodium 143 Potassium 4.2 Chloride 109 H Carbon Dioxide 33 H Anion Gap 2 L BUN 15.2 Creatinine 0.9 Est GFR (CKD-EPI)AfAm 110.27 Est GFR (CKD-EPI)NonAf 95.14 POC Glucometer 62 77 Random Glucose 79 Calcium 8.8 Total Bilirubin 0.5 AST 19 ALT 29 Alkaline Phosphatase 80 Total Protein 6.2 L Albumin 3.5 Urine Color Urine Appearance Urine pH Ur Specific [place] Urine Protein Urine Glucose (UA) Urine Ketones Urine Blood Urine Nitrite Urine Bilirubin Urine Urobilinogen Ur Leukocyte Esterase 05/07/19 05/07/19 05/08/19 06:02 16:23 06:25 WBC RBC Hgb Hct MCV MCH MCHC RDW Plt Count MPV Sodium Potassium Chloride Carbon Dioxide Anion Gap BUN Creatinine Est GFR (CKD-EPI)AfAm Est GFR (CKD-EPI)NonAf POC Glucometer 103 86 101 Random Glucose Calcium Total Bilirubin AST ALT Alkaline Phosphatase Total Protein Albumin Urine Color Urine Appearance Urine pH Ur Specific [place] Urine Protein Urine Glucose (UA) Urine Ketones Urine Blood Urine Nitrite Urine Bilirubin Urine Urobilinogen Ur Leukocyte Esterase 05/08/19 05/09/19 16:17 05:54 WBC RBC Hgb Hct MCV MCH MCHC RDW Plt Count MPV Sodium Potassium Chloride Carbon Dioxide Anion Gap BUN Creatinine Est GFR (CKD-EPI)AfAm Est GFR (CKD-EPI)NonAf POC Glucometer 84 87 Random Glucose Calcium Total Bilirubin AST ALT Alkaline Phosphatase Total Protein Albumin Urine Color Urine Appearance Urine pH Ur Specific [place] Urine Protein Urine Glucose (UA) Urine Ketones Urine Blood Urine Nitrite Urine Bilirubin Urine Urobilinogen Ur Leukocyte Esterase LABS NOTED. - Treatment Hospital Course: Detox Protocol Followed, Detoxed Safely, Responded well, Discharged Condition Good Patient has Accepted a Rehab Referral to: PT. REFERRED TO [facility] ([place], [place]). - Medication Discharge Medications: Ambulatory Orders Aspirin [ASA -] 81 mg PO DAILY 01/04/19 Atorvastatin Ca [Lipitor] 40 mg PO HS 01/04/19 Lisinopril [Prinivil -] 10 mg PO DAILY 01/04/19 Metformin HCl [Glucophage] 500 mg PO BID 01/04/19 - Diagnosis (1) Abrasion, leg w/o infection Status: Acute (2) Opioid dependence with withdrawal Status: Acute (3) Wheezing Status: Acute (4) Borderline type 2 diabetes mellitus Status: Chronic (5) HTN (hypertension) Status: Chronic Qualifiers: Hypertension type: essential hypertension Qualified Code(s): I10 - Essential (primary) hypertension (6) History of TB (tuberculosis) Status: Chronic (7) Nicotine dependence Status: Chronic Qualifiers: Nicotine product type: cigarettes Substance use status: uncomplicated Qualified Code(s): F17.210 - Nicotine dependence, cigarettes, uncomplicated - AMA Did Patient Leave Against Medical Advice: No
== END 2019-05-09 09:10 | disposition home or self-care (01) | DRG 773 ==
LOC: YASAS 12:39 → Y3N 21:42
PROVIDERS: ADMIT Surgery; ATTEND Surgery
PROC: HZ2ZZZZ Detoxification Services for Substance Abuse Treatment (ICD-10-PCS; principal; 2019-05-05)
DX: F11.23 Opioid dependence with withdrawal (principal); F17.210 Nicotine dependence, cigarettes, uncomplicated; I10 Essential (primary) hypertension; E78.5 Hyperlipidemia, unspecified; E11.9 Type 2 diabetes mellitus without complications; Z79.84 Long term (current) use of oral hypoglycemic drugs; R06.2 Wheezing; R76.11 Nonspecific reaction to tuberculin skin test without active tuberculosis; S80.812A Abrasion, left lower leg, initial encounter; S80.811A Abrasion, right lower leg, initial encounter; Y35.813A Legal intervention involving manhandling, suspect injured, initial encounter; Y93.89 Activity, other specified; Y92.89 Other specified places as the place of occurrence of the external cause; Y99.8 Other external cause status; Z86.11 Personal history of tuberculosis
CPT/HCPCS: 36415; 80053; 81003; 82962; 85027